=== PATIENT | female | born 1950 | race Caucasian/White ===

== ENCOUNTER 2021-09-26 04:38 | Inpatient (IN) | payer BC, MEDICARE ==
[2021-09-26 05:46] LABS: #Monocytes 0.6 10x3/uL (0.0-1.1); #Neutrophils 9.5 10x3/uL (1.5-8.4); %Basophils 0.2 % (0.0-2.0); %Lymphocytes 1.4 % (18.0-47.0); %Monocytes 5.7 % (0.0-10.0); %Neutrophils 90.9 % (40.0-75.0); Mean Corpuscular HGB CONC 32.4 g/dL (32.0-36.0); Mean Corpuscular Hemoglobin 32.6 pg (27.0-33.0); Mean Corpuscular Volume 100.9 fl (81.6-98.3); Mean Platelet Volume 9.7 fl (7.4-10.4); Platelet Count 136 10x3/uL (150-450); RBC Distribution Width 13.2 % (11.5-14.5); Red Blood Cell (RBC) Count 3.37 10x6/uL (3.90-5.03); White Blood Cell (WBC) Count 10.4 10x3/uL (3.5-10.5)
[2021-09-26 05:57] LABS: ALT (SGPT) 35 U/L (8-55); AST (SGOT) 21 U/L (5-34); Albumin 3.8 g/dL (3.4-4.8); Alkaline Phosphatase 54 U/L (40-110); Anion Gap 19 mmol/L (10-20); BUN (Urea Nitrogen) 19 mg/dL (9.8-20.1); Bilirubin, Total 0.3 mg/dL (0.2-1.2); Calc. Creatinine Clearance 0 mL/min (70-130); Carbon Dioxide 25 mmol/L (23-31); Chloride 100 mmol/L (98-107); Globulin 2.3 g/dL (2.4-3.5); Glucose 226 mg/dL (80-115); Potassium 3.7 mmol/L (3.5-5.1); Protein, Total 6.1 g/dL (5.8-8.1); Sodium 140 mmol/L (136-145)
[2021-09-26 06:10] LABS: Bilirubin Neg (Negative); Blood, Urine 10 (Negative); Clarity Clear (Clear); Glucose, Urine (Dipstick) >=1000 mg/dL (Negative); Ketone, Urine Negative (Negative); Leukocyte Negative (Negative); Nitrite Negative (Negative); Protein, Urine (Dipstick) 30 mg/dl (Neg-Trace); Urobilinogen Normal mg/dL (Less than 2); pH, Urine 6.5 (5.0-9.0)
[2021-09-26 06:31] LABS: Bacteria/HPF None Seen HPF (None Seen); RBC/HPF 0-3 HPF (0-3); Renal Epithelial 0-3 HPF (None Seen); Squamous Epithelial None Seen HPF (0-3); Transitional Epithelial None Seen HPF (None Seen); WBC/HPF 0-3 HPF (0-3)
[2021-09-26 06:54] LABS: SARS-CoV-2 NAA Rapid Test Not Detected (NotDetected)
[2021-09-26 08:27] LABS: PTT 20.5 sec (22.0-33.0); Prothrombin Time 10.8 sec (9.5-12.1)
[2021-09-26 08:49] LABS: Lactic Acid 4.1 mmol/L (0.5-2.2)
[2021-09-26] MEDS ORDERED: Ondansetron ODT 4 MG TAB PO PRN (08:58)
[2021-09-26] MEDS ORDERED: Lactated Ringer's 1,000 ML IV SCH (09:30)
[2021-09-26] MEDS ORDERED: Dextrose 50% Abboject 50 ML SYRINGE SLOW IVP PRN (09:36)
[2021-09-26] MEDS ORDERED: Dextrose 5% in Water 1,000 ML IV PRN (09:36)
[2021-09-26] MEDS ORDERED: HumaLOG 300 UNITS/3 ML VIAL SC PRN (09:36)
[2021-09-26 11:58] VITALS: BMI 24.0
[2021-09-26] MEDS ORDERED: Clindamycin 150 MG CAP PO SCH (12:00)
[2021-09-26] MEDS ORDERED: Clindamycin/D5W 600 MG in Premix Bag 1 BAG IVPB SCH (12:00)
[2021-09-26 12:14] LABS: Magnesium 1.3 mg/dL (1.6-2.6)
[2021-09-26] MEDS: Enoxaparin Sodium 30 MG/0.3 ML SYRINGE SC SCH (12:39)
[2021-09-26] MEDS ORDERED: Magnesium 2 GM/50 ML 2 GM in Premix Bag 1 BAG IVPB SCH (13:15)
[2021-09-26] MEDS ORDERED: Piperacillin/Tazobactam 3.375 GM in Sodium Chloride 0.9% 100 ML IVPB SCH ×2 (13:45→17:45)
[2021-09-26] MEDS ORDERED: Vancomycin 1 GM in Premix Bag 1 BAG IVPB SCH (14:00)
[2021-09-26] MEDS ORDERED: Vancomycin 25 MG/ML Oral SOLN PO SCH ×3 (14:30→17:00)
[2021-09-26 14:50] LABS: Lactic Acid 2.2 mmol/L (0.5-2.2)
[2021-09-26] MEDS ORDERED: Vancomycin HCl 1 GM in Sodium Chloride 0.9% 250 ML 250 ML IVPB SCH (16:15)
[2021-09-26] MEDS: Ampicillin/Sulbactam 3 GM in Sodium Chloride 0.9% 100 ML IVPB SCH ×2 (16:31→21:31)
[2021-09-26] MEDS ORDERED: Ampicillin/Sulbactam 3 GM VIAL ONE (21:17)
[2021-09-26] MEDS: Acetaminophen 325 MG TAB PO PRN (21:28)
[2021-09-26] MEDS: Aspirin 81 mg Enteric Coated Tablet PO SCH (21:30)
[2021-09-26] MEDS: Famotidine 20 MG TAB PO SCH (21:30)
[2021-09-27] MEDS: Ampicillin/Sulbactam 3 GM in Sodium Chloride 0.9% 100 ML IVPB SCH ×4 (01:14→20:05)
[2021-09-27] MEDS ORDERED: Morphine 4 MG/ML VIAL SLOW IVP SCH (01:15)
[2021-09-27] MEDS: Vancomycin HCl 750 MG in Sodium Chloride 0.9% 250 ML 250 ML IVPB SCH ×2 (03:15→16:11)
[2021-09-27] MEDS: Acetaminophen 325 MG TAB PO PRN ×3 (03:17→22:48)
[2021-09-27 05:39] LABS: Anion Gap 11 mmol/L (10-20); BUN (Urea Nitrogen) 9 mg/dL (9.8-20.1); Calc. Creatinine Clearance 87 mL/min (70-130); Calcium 7.8 mg/dL (7.8-10.44); Carbon Dioxide 30 mmol/L (23-31); Chloride 105 mmol/L (98-107); Glucose 113 mg/dL (80-115); Magnesium 1.5 mg/dL (1.6-2.6); Sodium 143 mmol/L (136-145)
[2021-09-27 05:42] LABS: Potassium 2.9 mmol/L (3.5-5.1)
[2021-09-27] MEDS ORDERED: HYDROmorphone 0.5 MG/0.5 ML SYRINGE SLOW IVP SCH (06:00)
[2021-09-27] MEDS ORDERED: Potassium Chloride 20 MEQ TAB PO SCH ×2 (06:00→08:00)
[2021-09-27 06:17] LABS: #Monocytes 0.4 10x3/uL (0.0-1.1); #Neutrophils 6.5 10x3/uL (1.5-8.4); %Eosinophils 0.4 % (0.0-6.0); %Lymphocytes 3.2 % (18.0-47.0); %Neutrophils 90.6 % (40.0-75.0); Mean Corpuscular HGB CONC 33.2 g/dL (32.0-36.0); Mean Corpuscular Hemoglobin 33.2 pg (27.0-33.0); Mean Platelet Volume 9.8 fl (7.4-10.4); Platelet Count 93 10x3/uL (150-450); RBC Distribution Width 13.2 % (11.5-14.5); Red Blood Cell (RBC) Count 2.71 10x6/uL (3.90-5.03); White Blood Cell (WBC) Count 7.2 10x3/uL (3.5-10.5)
[2021-09-27 06:29] LABS: Platelet Morphology Comment Appears Decreased; RBC Morphology Normal
[2021-09-27] MEDS ORDERED: Venlafaxine HCl XR 150 MG CAP PO SCH (09:00)
[2021-09-27] MEDS: Venlafaxine HCl XR 75 MG CAP PO SCH (09:03)
[2021-09-27] MEDS: Sucralfate 1 GM TAB PO SCH (09:04)
[2021-09-27] MEDS: Losartan Potassium 50 MG TAB PO SCH (09:04)
[2021-09-27] MEDS: Famotidine 20 MG TAB PO SCH ×2 (09:05→20:22)
[2021-09-27] MEDS: Fenofibrate Nanocrystallized 145 MG TAB PO SCH (09:15)
[2021-09-27] MEDS: Enoxaparin Sodium 30 MG/0.3 ML SYRINGE SC SCH ×2 (09:36→10:19)
[2021-09-27] MEDS ORDERED: Magnesium 2 GM/50 ML 2 GM in Premix Bag 1 BAG IVPB SCH (10:00)
[2021-09-27] MEDS: Morphine 4 MG/ML VIAL SLOW IVP PRN ×3 (11:15→19:56)
[2021-09-27] MEDS: HumaLOG 300 UNITS/3 ML VIAL SC PRN ×2 (12:19→17:26)
[2021-09-27 19:16] LABS: Anion Gap 12 mmol/L (10-20); BUN (Urea Nitrogen) 6 mg/dL (9.8-20.1); Calc. Creatinine Clearance 77 mL/min (70-130); Calcium 8.3 mg/dL (7.8-10.44); Carbon Dioxide 29 mmol/L (23-31); Chloride 99 mmol/L (98-107); Glucose 216 mg/dL (80-115); Potassium 3.4 mmol/L (3.5-5.1); Sodium 137 mmol/L (136-145)
[2021-09-27] MEDS: Aspirin 81 mg Enteric Coated Tablet PO SCH (20:22)
[2021-09-28] MEDS: Ampicillin/Sulbactam 3 GM in Sodium Chloride 0.9% 100 ML IVPB SCH ×4 (01:02→19:29)
[2021-09-28] MEDS: HumaLOG 300 UNITS/3 ML VIAL SC PRN ×2 (01:13→12:45)
[2021-09-28] MEDS: Morphine 4 MG/ML VIAL SLOW IVP PRN ×5 (01:16→23:02)
[2021-09-28 03:32] LABS: #Eosinphils 0.1 10x3/uL (0.0-0.5); #Monocytes 0.4 10x3/uL (0.0-1.1); #Neutrophils 5.7 10x3/uL (1.5-8.4); %Basophils 0.2 % (0.0-2.0); %Lymphocytes 4.1 % (18.0-47.0); %Monocytes 5.4 % (0.0-10.0); %Neutrophils 87.1 % (40.0-75.0); Hemoglobin 10.1 g/dL (12.0-15.5); Mean Corpuscular HGB CONC 32.7 g/dL (32.0-36.0); Mean Corpuscular Hemoglobin 32.8 pg (27.0-33.0); Mean Corpuscular Volume 100.3 fl (81.6-98.3); Platelet Count 72 10x3/uL (150-450); RBC Distribution Width 13.1 % (11.5-14.5); Red Blood Cell (RBC) Count 3.08 10x6/uL (3.90-5.03); White Blood Cell (WBC) Count 6.5 10x3/uL (3.5-10.5)
[2021-09-28 03:50] LABS: Vancomycin, Trough 9.7 ug/mL
[2021-09-28 03:56] LABS: Anion Gap 13 mmol/L (10-20); BUN (Urea Nitrogen) 5 mg/dL (9.8-20.1); Calc. Creatinine Clearance 90 mL/min (70-130); Calcium 8.3 mg/dL (7.8-10.44); Carbon Dioxide 29 mmol/L (23-31); Chloride 101 mmol/L (98-107); Glucose 132 mg/dL (80-115); Magnesium 1.6 mg/dL (1.6-2.6); Potassium 3.3 mmol/L (3.5-5.1); Sodium 140 mmol/L (136-145)
[2021-09-28] MEDS: Vancomycin HCl 750 MG in Sodium Chloride 0.9% 250 ML 250 ML IVPB SCH (03:59)
[2021-09-28] MEDS ORDERED: RUCAPARIB CAMSYLATE 300 MG PO SCH (09:00)
[2021-09-28] MEDS: Venlafaxine HCl XR 75 MG CAP PO SCH (09:19)
[2021-09-28] MEDS: Famotidine 20 MG TAB PO SCH ×2 (09:19→19:44)
[2021-09-28] MEDS: Sucralfate 1 GM TAB PO SCH (09:19)
[2021-09-28] MEDS: Fenofibrate Nanocrystallized 145 MG TAB PO SCH (09:19)
[2021-09-28] MEDS: Losartan Potassium 50 MG TAB PO SCH (09:20)
[2021-09-28] MEDS ORDERED: Potassium Chloride 20 MEQ TAB PO SCH (10:00)
[2021-09-28] MEDS ORDERED: Ketorolac Tromethamine 30 MG/ML VIAL IVP SCH (10:00)
[2021-09-28] MEDS: Magnesium 2 GM/50 ML 4 GM in Premix Bag 1 BAG IVPB SCH ×2 (10:18→12:45)
[2021-09-28] MEDS: Vancomycin HCl 1 GM in Sodium Chloride 0.9% 250 ML 250 ML IVPB SCH (15:56)
[2021-09-28] MEDS ORDERED: oxyCODONE 5 MG TAB PO PRN (16:08)
[2021-09-28] MEDS ORDERED: Aluminum & Magnesium Hydroxide 60 ML, Lidocaine 2% Viscous Solution 30 ML, diphenhydrAM... SSW PRN (16:10)
[2021-09-28] MEDS: Senokot S 8.6-50 MG TAB PO SCH (19:39)
[2021-09-28] MEDS: Aspirin 81 mg Enteric Coated Tablet PO SCH (19:39)
[2021-09-28] MEDS: oxyCODONE ER 10 MG TAB PO SCH (19:40)
[2021-09-28] MEDS: Ketorolac Tromethamine 30 MG/ML VIAL IVP PRN (20:41)
[2021-09-28] MEDS ORDERED: oxyCODONE ER 10 MG TAB PO SCH (21:00)
[2021-09-29] MEDS: Ampicillin/Sulbactam 3 GM in Sodium Chloride 0.9% 100 ML IVPB SCH ×4 (01:40→20:45)
[2021-09-29] MEDS: Acetaminophen 325 MG TAB PO PRN (01:40)
[2021-09-29] MEDS: Morphine 4 MG/ML VIAL SLOW IVP PRN ×2 (02:54→10:40)
[2021-09-29] MEDS: Vancomycin HCl 1 GM in Sodium Chloride 0.9% 250 ML 250 ML IVPB SCH ×2 (03:51→15:52)
[2021-09-29 04:48] LABS: #Eosinphils 0.2 10x3/uL (0.0-0.5); #Monocytes 0.3 10x3/uL (0.0-1.1); #Neutrophils 4.2 10x3/uL (1.5-8.4); %Lymphocytes 6.2 % (18.0-47.0); %Monocytes 5.2 % (0.0-10.0); %Neutrophils 83.4 % (40.0-75.0); Hemoglobin 9.8 g/dL (12.0-15.5); Mean Corpuscular HGB CONC 32.2 g/dL (32.0-36.0); Mean Corpuscular Volume 99.3 fl (81.6-98.3); Mean Platelet Volume 9.9 fl (7.4-10.4); Platelet Count 62 10x3/uL (150-450); RBC Distribution Width 13.2 % (11.5-14.5); Red Blood Cell (RBC) Count 3.06 10x6/uL (3.90-5.03)
[2021-09-29 04:56] LABS: Anion Gap 13 mmol/L (10-20); BUN (Urea Nitrogen) 6 mg/dL (9.8-20.1); Calc. Creatinine Clearance 86 mL/min (70-130); Calcium 8.4 mg/dL (7.8-10.44); Carbon Dioxide 30 mmol/L (23-31); Chloride 100 mmol/L (98-107); Glucose 157 mg/dL (80-115); Magnesium 1.7 mg/dL (1.6-2.6); Potassium 3.5 mmol/L (3.5-5.1); Sodium 139 mmol/L (136-145)
[2021-09-29] MEDS ORDERED: Fentanyl 100 MCG/2 ML VIAL ONE (09:28)
[2021-09-29] MEDS ORDERED: PROPOFOL 20 ML ONE (09:28)
[2021-09-29] MEDS ORDERED: Potassium Chloride 20 MEQ TAB PO SCH (10:15)
[2021-09-29] MEDS ORDERED: Magnesium Oxide 400 MG TAB PO SCH (10:30)
[2021-09-29] MEDS ORDERED: Dexamethasone 20 MG in Sodium Chloride 0.9% 50 ML IVPB SCH (12:00)
[2021-09-29] MEDS: oxyCODONE ER 10 MG TAB PO SCH ×2 (13:27→20:44)
[2021-09-29] MEDS: Famotidine 20 MG TAB PO SCH (13:27)
[2021-09-29] MEDS: Fenofibrate Nanocrystallized 145 MG TAB PO SCH (13:27)
[2021-09-29] MEDS: Losartan Potassium 50 MG TAB PO SCH (13:27)
[2021-09-29] MEDS: Senokot S 8.6-50 MG TAB PO SCH ×2 (13:28→20:44)
[2021-09-29] MEDS: Venlafaxine HCl XR 75 MG CAP PO SCH (13:28)
[2021-09-29] MEDS: Sucralfate 1 GM TAB PO SCH (13:28)
[2021-09-29] MEDS: Ketorolac Tromethamine 30 MG/ML VIAL IVP PRN (19:50)
[2021-09-29] MEDS: Aspirin 81 mg Enteric Coated Tablet PO SCH (20:44)
[2021-09-29] MEDS: Lantus 1000 UNITS/10 ML VIAL SC SCH (20:55)
[2021-09-30] MEDS: Morphine 4 MG/ML VIAL SLOW IVP PRN ×3 (01:04→13:35)
[2021-09-30] MEDS: Ampicillin/Sulbactam 3 GM in Sodium Chloride 0.9% 100 ML IVPB SCH ×4 (02:20→20:56)
[2021-09-30] MEDS: Acetaminophen 325 MG TAB PO PRN (03:15)
[2021-09-30 04:00] LABS: #Monocytes 0.1 10x3/uL (0.0-1.1); #Neutrophils 4.5 10x3/uL (1.5-8.4); %Basophils 0.2 % (0.0-2.0); %Lymphocytes 4.9 % (18.0-47.0); %Monocytes 2.2 % (0.0-10.0); %Neutrophils 91.9 % (40.0-75.0); Hemoglobin 10.4 g/dL (12.0-15.5); Mean Corpuscular Hemoglobin 32.4 pg (27.0-33.0); Mean Corpuscular Volume 98.1 fl (81.6-98.3); Mean Platelet Volume 9.7 fl (7.4-10.4); Platelet Count 80 10x3/uL (150-450); RBC Distribution Width 12.8 % (11.5-14.5); Red Blood Cell (RBC) Count 3.21 10x6/uL (3.90-5.03); White Blood Cell (WBC) Count 4.9 10x3/uL (3.5-10.5)
[2021-09-30 04:10] LABS: Vancomycin, Trough 14.2 ug/mL
[2021-09-30 04:14] LABS: Anion Gap 15 mmol/L (10-20); BUN (Urea Nitrogen) 8 mg/dL (9.8-20.1); Calc. Creatinine Clearance 82 mL/min (70-130); Calcium 8.5 mg/dL (7.8-10.44); Carbon Dioxide 26 mmol/L (23-31); Chloride 98 mmol/L (98-107); Glucose 247 mg/dL (80-115); Magnesium 1.5 mg/dL (1.6-2.6); Potassium 3.7 mmol/L (3.5-5.1); Sodium 135 mmol/L (136-145)
[2021-09-30] MEDS: Ketorolac Tromethamine 30 MG/ML VIAL IVP PRN (04:39)
[2021-09-30] MEDS: Vancomycin HCl 1 GM in Sodium Chloride 0.9% 250 ML 250 ML IVPB SCH ×2 (04:44→16:41)
[2021-09-30] MEDS: Potassium Chloride 20 MEQ TAB PO SCH (11:07)
[2021-09-30] MEDS: Magnesium Oxide 400 MG TAB PO SCH (11:08)
[2021-09-30] MEDS: Losartan Potassium 50 MG TAB PO SCH (11:08)
[2021-09-30] MEDS: Fenofibrate Nanocrystallized 145 MG TAB PO SCH (11:08)
[2021-09-30] MEDS: oxyCODONE ER 10 MG TAB PO SCH ×2 (11:08→20:45)
[2021-09-30] MEDS: Dexamethasone 20 MG in Sodium Chloride 0.9% 50 ML IVPB SCH (11:08)
[2021-09-30] MEDS: Senokot S 8.6-50 MG TAB PO SCH ×2 (11:09→20:46)
[2021-09-30] MEDS: Sucralfate 1 GM TAB PO SCH (11:09)
[2021-09-30] MEDS: Venlafaxine HCl XR 75 MG CAP PO SCH (11:10)
[2021-09-30] MEDS: HumaLOG 300 UNITS/3 ML VIAL SC PRN ×2 (18:22→20:50)
[2021-09-30] MEDS: Aspirin 81 mg Enteric Coated Tablet PO SCH (20:45)
[2021-09-30] MEDS: Lantus 1000 UNITS/10 ML VIAL SC SCH (20:48)
[2021-10-01] MEDS: Ampicillin/Sulbactam 3 GM in Sodium Chloride 0.9% 100 ML IVPB SCH ×2 (01:57→02:01)
[2021-10-01] MEDS: Vancomycin HCl 1 GM in Sodium Chloride 0.9% 250 ML 250 ML IVPB SCH (05:13)
[2021-10-01 05:57] LABS: #Monocytes 0.4 10x3/uL (0.0-1.1); #Neutrophils 5.8 10x3/uL (1.5-8.4); %Basophils 0.1 % (0.0-2.0); %Lymphocytes 5.7 % (18.0-47.0); %Monocytes 6.1 % (0.0-10.0); %Neutrophils 87.4 % (40.0-75.0); Hemoglobin 9.9 g/dL (12.0-15.5); Mean Corpuscular HGB CONC 32.7 g/dL (32.0-36.0); Mean Corpuscular Hemoglobin 31.8 pg (27.0-33.0); Mean Corpuscular Volume 97.4 fl (81.6-98.3); Platelet Count 109 10x3/uL (150-450); Red Blood Cell (RBC) Count 3.11 10x6/uL (3.90-5.03); White Blood Cell (WBC) Count 6.7 10x3/uL (3.5-10.5)
[2021-10-01 06:08] LABS: Anion Gap 13 mmol/L (10-20); BUN (Urea Nitrogen) 10 mg/dL (9.8-20.1); Calc. Creatinine Clearance 86 mL/min (70-130); Calcium 8.6 mg/dL (7.8-10.44); Carbon Dioxide 30 mmol/L (23-31); Chloride 100 mmol/L (98-107); Glucose 168 mg/dL (80-115); Potassium 3.8 mmol/L (3.5-5.1); Sodium 139 mmol/L (136-145)
[2021-10-01] MEDS: Potassium Chloride 20 MEQ TAB PO SCH (09:10)
[2021-10-01] MEDS: oxyCODONE ER 10 MG TAB PO SCH (09:11)
[2021-10-01] MEDS: Fenofibrate Nanocrystallized 145 MG TAB PO SCH (09:11)
[2021-10-01] MEDS: Venlafaxine HCl XR 75 MG CAP PO SCH (09:15)
[2021-10-01] MEDS: Losartan Potassium 50 MG TAB PO SCH (09:15)
[2021-10-01] MEDS: Sucralfate 1 GM TAB PO SCH (09:15)
[2021-10-01] MEDS: Magnesium Oxide 400 MG TAB PO SCH (09:16)
[2021-10-01] MEDS: Senokot S 8.6-50 MG TAB PO SCH (09:17)
[2021-10-01] MEDS: Dexamethasone 20 MG in Sodium Chloride 0.9% 50 ML IVPB SCH (09:18)
[2021-10-01 12:28] VITALS: BP 151/70
[2021-10-01 12:47] VITALS: TEMP 97.5
== END 2021-10-01 15:12 | disposition home or self-care (01) | DRG 155 ==
LOC: CSHERS 04:38 → INTOOBSV 09:24 → CSHTELE 09:24 → OBSVTOIN 09-27 18:28
PROVIDERS: ADMIT Family Medicine; ATTEND Internal Medicine
PROC: 0DJ08ZZ Inspection of Upper Intestinal Tract, Via Natural or Artificial Opening Endoscopic (ICD-10-PCS; principal; 2021-09-29)
DX: K11.20 Sialoadenitis, unspecified (principal); E87.2 Acidosis; C56.9 Malignant neoplasm of unspecified ovary; C79.31 Secondary malignant neoplasm of brain; I25.10 Atherosclerotic heart disease of native coronary artery without angina pectoris; E78.5 Hyperlipidemia, unspecified; F41.9 Anxiety disorder, unspecified; F32.A Depression, unspecified; I48.91 Unspecified atrial fibrillation; Z20.822 Contact with and (suspected) exposure to COVID-19; F17.210 Nicotine dependence, cigarettes, uncomplicated; E86.0 Dehydration; E87.6 Hypokalemia; E83.42 Hypomagnesemia; G89.4 Chronic pain syndrome; N18.9 Chronic kidney disease, unspecified; I12.9 Hypertensive chronic kidney disease with stage 1 through stage 4 chronic kidney disease, or unspecified chronic kidney disease; E11.22 Type 2 diabetes mellitus with diabetic chronic kidney disease; G25.81 Restless legs syndrome; E78.00 Pure hypercholesterolemia, unspecified; K21.9 Gastro-esophageal reflux disease without esophagitis; K29.70 Gastritis, unspecified, without bleeding; F03.90 Unspecified dementia, unspecified severity, without behavioral disturbance, psychotic disturbance, mood disturbance, and anxiety; Z79.82 Long term (current) use of aspirin; Z79.899 Other long term (current) drug therapy; Z90.710 Acquired absence of both cervix and uterus; Z90.49 Acquired absence of other specified parts of digestive tract; I25.2 Old myocardial infarction
CPT/HCPCS: 36415; 36416; 51702; 70450; 71045; 72125; 80048; 80053; 80202; 81003; 81015; 83605; 83735; 84443; 84484; 85025; 85610; 85652; 85730; 86140; 86850; 86900; 86901; 87040; 87045; 87046; 87081; 87086; 87324; 87328; 87329; 87427; 87449; 87798; 93005; 93010; 96372; 96374; 96375; 96376; G0378; J0295; J1100; J1170; J1650; J1815; J1885; J2270; J2704; J3010; J3370; J3475; J3490; J7050; J7120; U0002

== ENCOUNTER 2021-12-02 22:03 | Emergency (ER) | payer BC, MEDICARE ==
[2021-12-02 23:31] LABS: ALT (SGPT) 33 U/L (8-55); AST (SGOT) 26 U/L (5-34); Albumin 3.5 g/dL (3.4-4.8); Alkaline Phosphatase 78 U/L (40-110); Anion Gap 20 mmol/L (10-20); BUN (Urea Nitrogen) 12 mg/dL (9.8-20.1); Bilirubin, Total 0.3 mg/dL (0.2-1.2); Calc. Creatinine Clearance 0 mL/min (70-130); Calcium 8.4 mg/dL (7.8-10.44); Carbon Dioxide 13 mmol/L (23-31); Chloride 107 mmol/L (98-107); Globulin 2.8 g/dL (2.4-3.5); Glucose 290 mg/dL (80-115); Potassium 3.9 mmol/L (3.5-5.1); Protein, Total 6.3 g/dL (5.8-8.1); Sodium 136 mmol/L (136-145)
[2021-12-02 23:54] LABS: #Basophils 0.1 10x3/uL (0.0-0.2); #Neutrophils 10.2 10x3/uL (1.5-8.4); %Basophils 0.4 % (0.0-2.0); %Eosinophils 0.1 % (0.0-6.0); %Lymphocytes 5.8 % (18.0-47.0); %Monocytes 7.9 % (0.0-10.0); %Neutrophils 83.4 % (40.0-75.0); Hemoglobin 11.5 g/dL (12.0-15.5); Mean Corpuscular Hemoglobin 31.1 pg (27.0-33.0); Mean Corpuscular Volume 94.3 fl (81.6-98.3); Mean Platelet Volume 9.5 fl (7.4-10.4); RBC Distribution Width 13.2 % (11.5-14.5); White Blood Cell (WBC) Count 12.2 10x3/uL (3.5-10.5)
[2021-12-03] MEDS ORDERED: levETIRAcetam 500 MG TAB ONE (00:20)
[2021-12-03 00:22] LABS: Platelet Count 211 10x3/uL (150-450)
[2021-12-03 00:41] LABS: Bilirubin Neg (Negative); Blood, Urine 150 (Negative); Clarity Clear (Clear); Glucose, Urine (Dipstick) >=1000 mg/dL (Negative); Ketone, Urine Negative (Negative); Leukocyte Negative (Negative); Nitrite Negative (Negative); Protein, Urine (Dipstick) 30 mg/dl (Neg-Trace); Specific Gravity, Urine 1.015 (1.002-1.036); Urobilinogen Normal mg/dL (Less than 2)
[2021-12-03 00:53] LABS: Bacteria/HPF Rare-Few HPF (None Seen)
== END 2021-12-03 01:05 | disposition home or self-care (01) ==
LOC: CSHERS 22:03
DX: R56.9 Unspecified convulsions (principal); I12.9 Hypertensive chronic kidney disease with stage 1 through stage 4 chronic kidney disease, or unspecified chronic kidney disease; N18.9 Chronic kidney disease, unspecified; E78.5 Hyperlipidemia, unspecified; F17.210 Nicotine dependence, cigarettes, uncomplicated; Z79.899 Other long term (current) drug therapy; Z79.82 Long term (current) use of aspirin
CPT/HCPCS: 36415; 51701; 70450; 80053; 80177; 81003; 81015; 84146; 85025; 93005; 94760